=== PATIENT | female | born 1980 | race American Indian/Alaskan Native ===

== ENCOUNTER 2016-08-19 15:29 | Outpatient (CLI) | payer OTHER | END 2016-08-19 15:30 | disposition home or self-care (01) | LOC: LABHHL 15:29 | PROVIDERS: ATTEND Internal Medicine Gastroenterology | DX: K21.9 Gastro-esophageal reflux disease without esophagitis (principal); R14.0 Abdominal distension (gaseous); K58.9 Irritable bowel syndrome, unspecified; K92.1 Melena | CPT/HCPCS: 88305; 88342 ==

== ENCOUNTER 2016-09-07 07:43 | Outpatient (CLI) | payer OTHER ==
--- NOTE | 2016-09-08 14:31 | Nuclear Medicine Report ---
Nuclear medicine gastric emptying scan. History: Gastroparesis. Findings: The patient was given a meal containing 1 mCi of technetium 99 sulfur colloid. The T1/2 measures 51 minutes which is normal. Impression: Normal study.
== END 2016-09-07 07:44 | disposition home or self-care (01) ==
LOC: NM 07:43
PROVIDERS: ATTEND Internal Medicine Gastroenterology
DX: K31.84 Gastroparesis (principal)
CPT/HCPCS: 78264; A9541